=== PATIENT | female | born 1965 | race Caucasian/White ===

== ENCOUNTER 2018-02-26 07:47 | Outpatient (CLI) | payer OTHER ==
[~2018-02-26 07:47] MED LIST: NABUMETONE500 MG PO; PERCOCET 5/3251 TAB PO
== END 2018-02-26 08:02 | disposition home or self-care (01) ==
LOC: MRI 07:47
DX: M46.47 Discitis, unspecified, lumbosacral region (principal)
CPT/HCPCS: 72148

== ENCOUNTER 2018-03-10 13:15 | Outpatient (CLI) | payer OTHER | END 2018-03-10 13:24 | disposition home or self-care (01) | LOC: SONOGRAMA 13:15 | DX: N60.11 Diffuse cystic mastopathy of right breast (principal); N60.12 Diffuse cystic mastopathy of left breast; N63.21 Unspecified lump in the left breast, upper outer quadrant ==

== ENCOUNTER 2019-02-22 11:37 | Emergency (ER) | payer OTHER ==
[~2019-02-22] VITALS: Ht 165.1 cm; Wt 74.8 kg
[2019-02-22] MEDS ORDERED: JANUMET 50-1,01 EACH (11:47)
[2019-02-22] MEDS ORDERED: HYZAAR 100-251 EACH (11:47)
[2019-02-22] MEDS ORDERED: LIPITOR40 MG (11:48)
[2019-02-22] MEDS ORDERED: ZOLOFT20 MG/1 ML (11:48)
[2019-02-22] MEDS ORDERED: NEURONTIN800 MG (11:48)
== END 2019-02-22 15:12 | disposition home or self-care (01) ==
LOC: ER 11:37
DX: G50.0 Trigeminal neuralgia (principal)

== ENCOUNTER 2020-06-23 09:20 | Outpatient (CLI) | payer OTHER ==
[~2020-06-23 09:20] MED LIST changes: +HYZAAR 100-251 EACH; +JANUMET 50-1,01 EACH; +LIPITOR40 MG; +NEURONTIN800 MG; +ZOLOFT20 MG/1 ML
== END 2020-06-23 09:25 | disposition home or self-care (01) ==
LOC: EKG 09:20
PROVIDERS: ATTEND Internal Medicine Cardiovascular Disease
DX: I10 Essential (primary) hypertension (principal); J44.9 Chronic obstructive pulmonary disease, unspecified